=== PATIENT | male | born 1950 | race African-American/Black ===

== ENCOUNTER → 2016-10-29 | Outpatient (CLI) | payer BC ==
[~2016-10-29] MED LIST: KEFLEX PO; KETOPROFEN PO; VICODIN 5/1 TAB 5/50 PO
--- NOTE | ~2016-10-29 | NM8 ---
[facility] A Service of [facility] & [facility] RADIOLOGY TEXT RESULTS PATIENT: DONNA KRAUS LOCATION: [facility] : 52 UNIT #: [id number] AGE: [address]: Billy Wahl MD SEX: M ORDER DR: [id number] [facility] [address] [place], [place] [address] [id number] O MR#: [id number] Acc #: [id number] NAME: DONNA KRAUS : 1950 SEX: M STUDY DATE/TIME: 10/29/2016 11:47 UNIT: [facility] ROOM: STUDY DESCRIPTION: MI Bone or Joint Whole Body Attending Physician: Billy Wahl M.D. Referring Physician: Billy Wahl M.D. Ordering Physician: Billy Wahl M.D. Primary Care Physician: Monisha Serna M.D. MEDICAL IMAGING REPORT This report is preliminary unless electronic signature is present EXAM Whole-body bone scan 10/29/2016 HISTORY Recently diagnosed with prostate cancer, elevated PSA. Symptoms for 2 months. COMPARISON STUDIES Comparison right hip and pelvic films 10/29/2016. Request has also been placed for the patient's outside CT scan from [facility]. TECHNIQUE Whole-body and selected spot images were performed of the axial and appendicular skeleton following intravenous administration of 28.4 mCi technetium 99m MDP. FINDINGS Examination demonstrates multiple foci of increased uptake most prominent within the right proximal femur in the region of the femoral head and neck and also within the right iliac bone, also within the sacrum. Multiple foci of increased uptake identified within the thoracic and lumbar spine and also within both ribs. In this patient with diagnosis of prostate cancer this is compatible with widely disseminated skeletal metastases. Conventional radiographs of the right femur does demonstrate subtle area of sclerosis within the femoral neck which may correspond to the area of metastatic disease but no evidence of impending pathologic fracture. Degenerative uptake noted within the knees, feet and ankles and hands and wrists. There is increased uptake within the cervical spine probably degenerative in nature but metastatic disease not excluded. Solitary renal activity noted with activity seen only in the left kidney. Correlate with patient's surgical history. Activity is also noted overlying the pelvis some of which may represent bladder activity but due to its asymmetric positioning and prominence particularly on the anterior STS. [facility] A Service of [facility] & [facility] RADIOLOGY TEXT RESULTS PATIENT: DONNA KRAUS LOCATION: [facility] : 52 UNIT #: [id number] AGE: [address]: Billy Wahl MD SEX: M ORDER DR: acquisitions this could represent activity within the left pubic ramus. No discrete bone lesions are noted on conventional radiographs. IMPRESSION 1. Widely disseminated skeletal metastases most prominent within the pelvis, proximal right femur, thoracic spine, lumbar spine and ribs. The right proximal femur lesion does demonstrate a subtle area of sclerosis but no evidence to support impending pathologic fracture. 2. Degenerative uptake within the knees, feet and ankles, hands and wrists. 3. Apparent solitary left renal activity. Correlate with patient's surgical history and medical history. 4. Patient's outside CT from [facility] has been requested and this can be utilized to assess the extent of the spinal metastases. Dictated by... Chole Khalil M.D. THIS IS AN ELECTRONICALLY VERIFIED REPORT Chloe Khalil M.D. at 10/31/2016 11:39 AM Sruthi TD: 10/29/2016 17:09 JOB #: [id number] MEDICAL IMAGING REPORT COPY
--- NOTE | ~2016-10-29 | CR151 ---
[facility] A Service of [facility] RADIOLOGY TEXT RESULTS PATIENT: DON[facility] KRAUS [id number] 52 UNIT #: [id number] AGE: [address]: Billy Wahl MD SEX: M ORDER DR: [id number] [id number] [facility]. [place], [place] [address] [id number] O MR#: [id number] [facility] #: [id number] NAME: DONNA KRAUS : 1950 SEX: M STUDY DATE/TIME: 10/29/2016 13:51 UNIT: [facility] ROOM: STUDY DESCRIPTION: CR Hip Min 2 Views Rt Attending Physician: Billy Wahl M.D. Referring Physician: Billy Wahl M.D. Ordering Physician: Wallace Khalil M.D. Primary Care Physician: Monisha Serna M.D. MEDICAL IMAGING REPORT This report is preliminary unless electronic signature is present EXAM AP pelvis with frog view of the right hip. DATE OF EXAM 10/29/2016 HISTORY 66-year-old male with abnormal bone scan findings in right hip. Right hip pain for a month. Recently diagnosed with prostate cancer. COMPARISON Bone scan 10/29/2016. Correlation is also made to CT abdomen and pelvis performed at [facility], 10/23/2016. FINDINGS There is mild asymmetric increased density or sclerosis within the right femoral neck compared to the left, suggesting a site of osseous metastatic disease in this patient with a history of prostate cancer. Similar correlate is thought to be present on the outside CT pelvis from 10/23/2016. No pelvic fracture, hip fracture or hip dislocation is seen. Degenerative spurring in the lower lumbar spine. IMPRESSION 1. Subtle sclerotic focus in the right femoral neck, thought to represent a site of metastatic disease in this patient with known history of prostate cancer. It corresponds to the abnormal findings on today's whole-body bone scan. 2. No pelvic fracture, hip fracture or hip dislocation. Dictated by... Evelia Posey M.D. [facility] A Service of [facility] RADIOLOGY TEXT RESULTS PATIENT: DONNA KRAUS [id number] 52 UNIT #: [id number] AGE: [address]: Billy Wahl MD SEX: M ORDER DR: THIS IS AN ELECTRONICALLY VERIFIED REPORT Evelia Posey M.D. at 10/30/2016 11:57 AM Gordon TD: 10/30/2016 01:55 JOB #: [id number] MEDICAL IMAGING REPORT COPY
== END | disposition home or self-care (01) ==
LOC: CNUC 08:19
DX: N40.1 Benign prostatic hyperplasia with lower urinary tract symptoms (principal); R31.9 Hematuria, unspecified; R35.0 Frequency of micturition; R35.1 Nocturia; R94.8 Abnormal results of function studies of other organs and systems; M17.0 Bilateral primary osteoarthritis of knee
CPT/HCPCS: 73502; 78306; A9503